=== PATIENT | female | born 1970 | race Caucasian/White ===

== ENCOUNTER 2025-06-23 18:54 | Emergency (ER) | payer SELFPAY ==
[~2025-06-23] VITALS: Ht 160 cm; Wt 108.0 kg
[2025-06-23 19:10] VITALS: TEMP 98.2
[2025-06-23] MEDS: METOPROLOL TARTRATE 25 MG TAB PO ONE (20:17)
[2025-06-23 20:38] LABS: EST GLOMERULAR FILTRATION RATE 92.0 ML/MIN (>=60)
[2025-06-23 20:59] LABS: BASOPHILS % 0.5 % (0.0-1.0); EOSINOPHILS % 3.2 % (0.0-6.0); LYMPHOCYTES % 19.6 % (18.0-39.1); MONOCYTES % 7.1 % (4.4-11.3); NEUTROPHILS % 69.3 % (38.7-80.0); RED CELL DISTRIBUTION WIDTH 13.3 % (11.7-14.4)
[2025-06-23 21:23] LABS: LEUKOCYTE ESTERASE ,URINE NEGATIVE (NEGATIVE); PROTEIN,URINE DIPSTICK 1+ (NEGATIVE); URINE UROBILINOGEN 0.2 mg/dL (0.2 - 1)
[2025-06-23 21:30] VITALS: PULSE 79; RESP 15
[2025-06-23 21:31] LABS: EPITHELIAL CELLS,URINE MANY /LPF; WBC,URINE (MAN) 0-5 /HPF (0-5)
[2025-06-23 21:32] LABS: OTHER CRYSTALS,URINE PRESENT
[2025-06-23] MEDS ORDERED: METOPROLOL TART25 MG PO (21:46)
[2025-06-23] MEDS: HYDRALAZINE HCL 20 MG/ML VIAL IV ONE (21:56)
[2025-06-23 22:25] VITALS: BP 170/101; PULSE 85; RESP 15; TEMP 98.4; O2SAT 100
== END 2025-06-23 22:26 | disposition home or self-care (01) ==
LOC: ER 19:30
DX: I10 Essential (primary) hypertension (principal)
CPT/HCPCS: 36415; 80053; 81001; 85025; 93005; 99284; J0360